=== PATIENT | male | born 1990 | race Caucasian/White ===

== ENCOUNTER 2019-03-02 09:22 | Emergency (ER) | payer OTHER ==
[~2019-03-02] VITALS: Ht 182.9 cm; Wt 92.1 kg
[2019-03-02] MEDS ORDERED: IBUPROFEN200 MG PO (09:41)
== END 2019-03-02 11:21 | disposition home or self-care (01) ==
LOC: ED 09:22
DX: S63.696A Other sprain of right little finger, initial encounter (principal); F17.200 Nicotine dependence, unspecified, uncomplicated; X50.9XXA Other and unspecified overexertion or strenuous movements or postures, initial encounter
CPT/HCPCS: 73130; 99283-25

== ENCOUNTER 2019-08-30 16:36 | Emergency (ER) | payer OTHER ==
[~2019-08-30] VITALS: Ht 182.9 cm; Wt 92.1 kg
[~2019-08-30 16:36] MED LIST: IBUPROFEN200 MG PO
[2019-08-30] MEDS ORDERED: NORCO 7.5-3251 EACH PO (19:00)
[2019-08-30] MEDS ORDERED: ONDANSETRON ODT8 MG PO (19:00)
== END 2019-08-30 19:14 | disposition home or self-care (01) ==
LOC: ED 16:36
DX: S29.012A Strain of muscle and tendon of back wall of thorax, initial encounter (principal); S39.012A Strain of muscle, fascia and tendon of lower back, initial encounter; S70.02XA Contusion of left hip, initial encounter; F17.200 Nicotine dependence, unspecified, uncomplicated; W22.8XXA Striking against or struck by other objects, initial encounter
CPT/HCPCS: 72070; 72100; 73502; 96372; 99283-25; A9270; J1170

== ENCOUNTER 2023-03-22 07:26 | Emergency (ER) | payer OTHER ==
[~2023-03-22] VITALS: Ht 182.9 cm; Wt 92.1 kg
[~2023-03-22 07:26] MED LIST changes: +NORCO 7.5-3251 EACH PO; +ONDANSETRON ODT8 MG PO
[2023-03-22] MEDS ORDERED: DEXAMETHASONE SOD PHOS 10 MG/ML VIAL PO ONE (08:00)
[2023-03-22] MEDS ORDERED: ondansetron HCL 4 MG TAB PO ONE (08:00)
[2023-03-22] MEDS ORDERED: INHALER, ASSIST DEVICES 1 EACH SPACER MISC ONE (08:00)
[2023-03-22] MEDS ORDERED: ALBUTEROL SULFATE 8 GM HOME.PACK INH ONE (08:00)
[2023-03-22 08:58] LABS: INFLUENZA B NAA NEGATIVE (NEGATIVE); RESPIRATORY SYNCYTIAL VIR NAA NEGATIVE (NEGATIVE)
[2023-03-22] MEDS ORDERED: PREDNISONE20 MG PO (09:11)
[2023-03-22 09:13] VITALS: BP 124/93
== END 2023-03-22 09:14 | disposition home or self-care (01) ==
LOC: ED 07:26
PROVIDERS: Emergency Medicine
DX: J45.901 Unspecified asthma with (acute) exacerbation (principal); F17.200 Nicotine dependence, unspecified, uncomplicated; Z11.52 Encounter for screening for COVID-19
CPT/HCPCS: 71045; 87502; 94640; 94664; 99284-25; 99406; A9270; C9803; J1100; U0002